=== PATIENT | male | born 1940 | race Caucasian/White ===

== ENCOUNTER 2021-02-26 20:46 | Inpatient (IN) | payer MEDICARE ==
[~2021-02-26 20:46] MED LIST: Heparin 1,000 UNITS/ML VIAL ONE
[2021-02-26 21:11] VITALS: BMI 26.4
[2021-02-26] MEDS ORDERED: traMADol HCl 50 MG TAB PO PRN (21:22)
[2021-02-26] MEDS ORDERED: Acetaminophen 325 MG TAB PO PRN (21:22)
[2021-02-26] MEDS ORDERED: Gabapentin 300 MG CAP PO SCH (21:45)
[2021-02-26] MEDS ORDERED: Docusate 100 MG CAP PO PRN (23:21)
[2021-02-26] MEDS: Docusate 100 MG CAP PO PRN (23:27)
[2021-02-26] MEDS: oxyCODONE/Acetaminophen 5 mg/325 mg Tablet PO PRN (23:50)
[2021-02-26] MEDS ORDERED: Albuterol 200 PUFF (6.7GM INHALER) INH PRN (23:51)
[2021-02-26] MEDS ORDERED: Vancomycin 1 GM in Premix Bag 1 BAG IVPB SCH (23:59)
[2021-02-27] MEDS: Ipratropium Bromide 2.5 ml Neb NEB SCH ×4 (01:46→19:38)
[2021-02-27 04:20] LABS: #Eosinphils 0.1 thou/uL (0.0-0.7); #Lymphocytes 1.9 thou/uL (1.20-3.40); #Monocytes 0.4 thou/uL (0.11-0.59); #Neutrophils 2.7 thou/uL (1.40-6.50); %Basophils 0.3 % (0.0-1.0); %Eosinophils 2.3 % (0.0-10.0); %Lymphocytes 36.3 % (21.0-51.0); %Monocytes 8.2 % (0.0-10.0); %Neutrophils 52.9 % (42.0-75.0); Hemoglobin 12.1 g/dL (14.0-18.0); Mean Corpuscular Hemoglobin 29.8 pg (27.0-31.0); Mean Corpuscular Volume 90.2 fL (78.0-98.0); Mean Platelet Volume 8.2 fL (7.4-10.4); Platelet Count 215 thou/uL (130-400); RBC Distribution Width 13.2 % (11.5-14.5); Red Blood Cell (RBC) Count 4.08 mill/uL (4.70-6.10); White Blood Cell (WBC) Count 5.2 thou/uL (4.8-10.8)
[2021-02-27 04:42] LABS: Anion Gap 10 mmol/L (10-20); BUN (Urea Nitrogen) 11 mg/dL (8.4-25.7); Calc. Creatinine Clearance 80 mL/min (70-130); Calcium 8.8 mg/dL (7.8-10.44); Carbon Dioxide 26 mmol/L (23-31); Chloride 105 mmol/L (98-107); Glucose 100 mg/dL (83-110); Potassium 3.7 mmol/L (3.5-5.1); Sodium 137 mmol/L (136-145)
[2021-02-27] MEDS ORDERED: Vancomycin HCl 750 MG in Sodium Chloride 0.9% 250 ML 250 ML IVPB SCH (06:00)
[2021-02-27] MEDS: oxyCODONE/Acetaminophen 5 mg/325 mg Tablet PO PRN ×3 (06:53→21:58)
[2021-02-27] MEDS ORDERED: hydrALAZINE 20 MG/ML VIAL SLOW IVP PRN (07:28)
[2021-02-27] MEDS ORDERED: Vancomycin 1 GM in Premix Bag 1 BAG IVPB SCH ×2 (09:00→12:00)
[2021-02-27] MEDS ORDERED: Triamterene/Hydrochlorothiazide 37.5 mg/25 mg Tablet PO SCH (09:00)
[2021-02-27] MEDS ORDERED: Lorazepam 2 MG/ML VIAL SLOW IVP PRN (09:08)
[2021-02-27] MEDS: Polyethylene Glycol 3350 17 GM Packet PO SCH (09:21)
[2021-02-27] MEDS: Amlodipine 5 MG TAB PO SCH ×2 (09:21→20:05)
[2021-02-27] MEDS: Vit A,C & E/Lutein/Minerals Tablet PO SCH (09:21)
[2021-02-27] MEDS: Simvastatin 10 MG TAB PO SCH ×2 (09:21→09:29)
[2021-02-27] MEDS: Lisinopril 20 MG TAB PO SCH ×2 (09:25→20:05)
[2021-02-27] MEDS: Tamsulosin HCl 0.4 MG CAP PO SCH (09:25)
[2021-02-27] MEDS: Gabapentin 300 MG CAP PO SCH ×3 (09:25→20:05)
[2021-02-27] MEDS ORDERED: Ketorolac Tromethamine 30 MG/ML VIAL IVP SCH (11:00)
[2021-02-27] MEDS ORDERED: Piperacillin/Tazobactam 3.375 GM in Sodium Chloride 0.9% 100 ML IVPB SCH ×3 (12:15→17:00)
[2021-02-27] MEDS: Ketorolac Tromethamine 30 MG/ML VIAL IVP PRN (17:42)
[2021-02-27] MEDS: guaiFENesin/DM ER PO SCH (20:05)
[2021-02-28] MEDS: Ipratropium Bromide 2.5 ml Neb NEB SCH ×5 (01:20→23:27)
[2021-02-28] MEDS: Ketorolac Tromethamine 30 MG/ML VIAL IVP PRN (02:47)
[2021-02-28] MEDS: tiZANidine HCl 4 MG TAB PO PRN (02:47)
[2021-02-28] MEDS: oxyCODONE/Acetaminophen 5 mg/325 mg Tablet PO PRN ×2 (07:25→14:38)
[2021-02-28] MEDS: Simvastatin 10 MG TAB PO SCH (09:28)
[2021-02-28] MEDS: Lisinopril 20 MG TAB PO SCH ×2 (09:28→20:05)
[2021-02-28] MEDS: Docusate 100 MG CAP PO PRN (09:28)
[2021-02-28] MEDS ORDERED: Bisacodyl 10 MG SUPP PR PRN ×2 (09:29→14:08)
[2021-02-28] MEDS: Tamsulosin HCl 0.4 MG CAP PO SCH (09:29)
[2021-02-28] MEDS: Amlodipine 5 MG TAB PO SCH ×2 (09:29→20:07)
[2021-02-28] MEDS: Polyethylene Glycol 3350 17 GM Packet PO SCH (09:30)
[2021-02-28] MEDS: Vit A,C & E/Lutein/Minerals Tablet PO SCH (09:30)
[2021-02-28] MEDS ORDERED: Fleet Enema 133 ML BOT PR SCH (09:30)
[2021-02-28] MEDS: Gabapentin 300 MG CAP PO SCH ×3 (09:32→20:06)
[2021-02-28] MEDS: guaiFENesin/DM ER PO SCH ×2 (09:32→20:06)
[2021-02-28] MEDS: busPIRone HCl 5 MG TAB PO PRN (12:14)
[2021-02-28] MEDS: Melatonin 3 MG TAB PO PRN (20:07)
[2021-02-28] MEDS: Calcium Carbonate 500 MG ChewTAB PO PRN (21:35)
[2021-03-01] MEDS: oxyCODONE/Acetaminophen 5 mg/325 mg Tablet PO PRN ×3 (01:18→16:41)
[2021-03-01] MEDS: tiZANidine HCl 4 MG TAB PO PRN ×2 (05:32→20:28)
[2021-03-01] MEDS: Vit A,C & E/Lutein/Minerals Tablet PO SCH (09:00)
[2021-03-01 09:21] LABS: #Basophils 0.1 thou/uL (0.0-0.2); #Eosinphils 0.2 thou/uL (0.0-0.7); #Lymphocytes 2.6 thou/uL (1.20-3.40); #Monocytes 0.5 thou/uL (0.11-0.59); #Neutrophils 4.7 thou/uL (1.40-6.50); %Basophils 0.8 % (0.0-1.0); %Eosinophils 2.6 % (0.0-10.0); %Lymphocytes 31.7 % (21.0-51.0); %Monocytes 6.6 % (0.0-10.0); %Neutrophils 58.2 % (42.0-75.0); Hemoglobin 12.9 g/dL (14.0-18.0); Mean Corpuscular HGB CONC 32.4 g/dL (32.0-36.0); Mean Corpuscular Hemoglobin 29.5 pg (27.0-31.0); Mean Corpuscular Volume 91.2 fL (78.0-98.0); Platelet Count 218 thou/uL (130-400); RBC Distribution Width 13.6 % (11.5-14.5); Red Blood Cell (RBC) Count 4.37 mill/uL (4.70-6.10); White Blood Cell (WBC) Count 8.1 thou/uL (4.8-10.8)
[2021-03-01 09:42] LABS: ALT (SGPT) 13 U/L (8-55); AST (SGOT) 18 U/L (5-34); Albumin 3.7 g/dL (3.4-4.8); Alkaline Phosphatase 67 U/L (40-110); Anion Gap 14 mmol/L (10-20); BUN (Urea Nitrogen) 19 mg/dL (8.4-25.7); Bilirubin, Total 0.6 mg/dL (0.2-1.2); Calc. Creatinine Clearance 61 mL/min (70-130); Calcium 9.5 mg/dL (7.8-10.44); Carbon Dioxide 25 mmol/L (23-31); Chloride 102 mmol/L (98-107); Glucose 108 mg/dL (83-110); Potassium 4.2 mmol/L (3.5-5.1); Protein, Total 6.7 g/dL (5.8-8.1); Sodium 137 mmol/L (136-145)
[2021-03-01] MEDS: Senokot S 8.6-50 MG TAB PO SCH ×2 (10:01→21:49)
[2021-03-01] MEDS: Simvastatin 10 MG TAB PO SCH (10:01)
[2021-03-01] MEDS: Gabapentin 300 MG CAP PO SCH ×3 (10:01→20:28)
[2021-03-01] MEDS: Lisinopril 20 MG TAB PO SCH ×2 (10:03→11:09)
[2021-03-01] MEDS: Tamsulosin HCl 0.4 MG CAP PO SCH ×2 (10:05→20:28)
[2021-03-01] MEDS: Amlodipine 5 MG TAB PO SCH (10:05)
[2021-03-01] MEDS: guaiFENesin/DM ER PO SCH ×2 (10:06→20:28)
[2021-03-01] MEDS: Polyethylene Glycol 3350 17 GM Packet PO SCH (10:06)
[2021-03-01] MEDS: busPIRone HCl 5 MG TAB PO PRN (10:51)
[2021-03-01] MEDS: Ipratropium Bromide 2.5 ml Neb NEB SCH ×2 (11:07→13:50)
[2021-03-01] MEDS ORDERED: Ipratropium Bromide 2.5 ml Neb NEB PRN (13:14)
[2021-03-01] MEDS: Phenazopyridine HCl 100 MG TAB PO SCH (18:07)
[2021-03-01] MEDS: Phenazopyridine HCl 97.5 MG TABLET PO SCH (20:18)
[2021-03-01] MEDS: Melatonin 3 MG TAB PO PRN (20:28)
[2021-03-01] MEDS: Ampicillin 2 GM in Sodium Chloride 0.9% 100 ML IVPB SCH (20:29)
[2021-03-01] MEDS: cefTRIAXone\\ROCEPHIN 2 GM in Sodium Chloride 0.9% 100 ML IVPB SCH (20:29)
[2021-03-02] MEDS: Ampicillin 2 GM in Sodium Chloride 0.9% 100 ML IVPB SCH ×6 (01:13→21:39)
[2021-03-02] MEDS: oxyCODONE/Acetaminophen 5 mg/325 mg Tablet PO PRN ×2 (02:40→14:10)
[2021-03-02 04:32] LABS: #Eosinphils 0.1 thou/uL (0.0-0.7); #Monocytes 0.5 thou/uL (0.11-0.59); #Neutrophils 4.5 thou/uL (1.40-6.50); %Basophils 0.3 % (0.0-1.0); %Eosinophils 1.7 % (0.0-10.0); %Lymphocytes 27.6 % (21.0-51.0); %Monocytes 7.3 % (0.0-10.0); %Neutrophils 63.1 % (42.0-75.0); Hemoglobin 11.7 g/dL (14.0-18.0); Mean Corpuscular HGB CONC 33.3 g/dL (32.0-36.0); Mean Corpuscular Hemoglobin 29.5 pg (27.0-31.0); Mean Corpuscular Volume 88.8 fL (78.0-98.0); Mean Platelet Volume 8.4 fL (7.4-10.4); Platelet Count 196 thou/uL (130-400); RBC Distribution Width 13.2 % (11.5-14.5); Red Blood Cell (RBC) Count 3.97 mill/uL (4.70-6.10); White Blood Cell (WBC) Count 7.1 thou/uL (4.8-10.8)
[2021-03-02 04:50] LABS: Anion Gap 10 mmol/L (10-20); BUN (Urea Nitrogen) 16 mg/dL (8.4-25.7); Calc. Creatinine Clearance 79 mL/min (70-130); Calcium 9.1 mg/dL (7.8-10.44); Carbon Dioxide 26 mmol/L (23-31); Chloride 105 mmol/L (98-107); Glucose 112 mg/dL (83-110); Potassium 3.6 mmol/L (3.5-5.1); Sodium 137 mmol/L (136-145)
[2021-03-02] MEDS: Ketorolac Tromethamine 30 MG/ML VIAL IVP PRN (05:11)
[2021-03-02] MEDS: Calcium Carbonate 500 MG ChewTAB PO PRN ×2 (08:39→12:35)
[2021-03-02] MEDS: Gabapentin 300 MG CAP PO SCH ×3 (08:40→21:40)
[2021-03-02] MEDS: Senokot S 8.6-50 MG TAB PO SCH ×2 (08:41→21:39)
[2021-03-02] MEDS: Phenazopyridine HCl 100 MG TAB PO SCH ×3 (08:41→18:55)
[2021-03-02] MEDS: busPIRone HCl 5 MG TAB PO PRN (08:41)
[2021-03-02] MEDS: Tamsulosin HCl 0.4 MG CAP PO SCH ×2 (08:42→21:39)
[2021-03-02] MEDS: cefTRIAXone\\ROCEPHIN 2 GM in Sodium Chloride 0.9% 100 ML IVPB SCH ×2 (08:42→18:55)
[2021-03-02] MEDS: guaiFENesin/DM ER PO SCH ×2 (08:43→21:39)
[2021-03-02] MEDS: Vit A,C & E/Lutein/Minerals Tablet PO SCH (08:44)
[2021-03-02] MEDS: Polyethylene Glycol 3350 17 GM Packet PO SCH (08:45)
[2021-03-02] MEDS: Simvastatin 10 MG TAB PO SCH (08:45)
[2021-03-02] MEDS: Phenazopyridine HCl 97.5 MG TABLET PO SCH ×3 (11:06→18:43)
[2021-03-02] MEDS ORDERED: Milk Of Magnesia 30 ML UDCUP PO PRN (13:06)
[2021-03-02] MEDS: tiZANidine HCl 4 MG TAB PO PRN (14:11)
[2021-03-02] MEDS: Melatonin 3 MG TAB PO PRN (21:39)
[2021-03-03] MEDS: Ampicillin 2 GM in Sodium Chloride 0.9% 100 ML IVPB SCH ×4 (01:53→12:02)
[2021-03-03] MEDS: oxyCODONE/Acetaminophen 5 mg/325 mg Tablet PO PRN ×2 (06:21→12:28)
[2021-03-03] MEDS: cefTRIAXone\\ROCEPHIN 2 GM in Sodium Chloride 0.9% 100 ML IVPB SCH (08:03)
[2021-03-03] MEDS: Polyethylene Glycol 3350 17 GM Packet PO SCH (08:04)
[2021-03-03] MEDS: Gabapentin 300 MG CAP PO SCH (08:05)
[2021-03-03] MEDS: Senokot S 8.6-50 MG TAB PO SCH (08:05)
[2021-03-03] MEDS: Simvastatin 10 MG TAB PO SCH (08:06)
[2021-03-03] MEDS: busPIRone HCl 5 MG TAB PO PRN (08:06)
[2021-03-03] MEDS: guaiFENesin/DM ER PO SCH (08:06)
[2021-03-03] MEDS: Phenazopyridine HCl 100 MG TAB PO SCH (08:06)
[2021-03-03] MEDS: Tamsulosin HCl 0.4 MG CAP PO SCH (08:06)
[2021-03-03 08:16] VITALS: BP 136/67; TEMP 98.7
[2021-03-03] MEDS: Phenazopyridine HCl 97.5 MG TABLET PO SCH (09:02)
[2021-03-03] MEDS: Vit A,C & E/Lutein/Minerals Tablet PO SCH (09:27)
== END 2021-03-03 13:30 | disposition home or self-care (01) | DRG 540 ==
LOC: ONC 21:04 → OBSVTOIN 02-27 17:19
PROVIDERS: ADMIT Family Medicine; ATTEND Internal Medicine
PROC: 02HV33Z Insertion of Infusion Device into Superior Vena Cava, Percutaneous Approach (ICD-10-PCS; principal; 2021-03-02)
PROC: B5181ZA Fluoroscopy of Superior Vena Cava using Low Osmolar Contrast, Guidance (ICD-10-PCS; 2021-03-02)
PROC: B548ZZA Ultrasonography of Superior Vena Cava, Guidance (ICD-10-PCS; 2021-03-02)
DX: M46.24 Osteomyelitis of vertebra, thoracic region (principal); I50.32 Chronic diastolic (congestive) heart failure; I42.9 Cardiomyopathy, unspecified; M46.44 Discitis, unspecified, thoracic region; I11.0 Hypertensive heart disease with heart failure; J44.9 Chronic obstructive pulmonary disease, unspecified; I73.9 Peripheral vascular disease, unspecified; G89.29 Other chronic pain; N40.0 Benign prostatic hyperplasia without lower urinary tract symptoms; E78.2 Mixed hyperlipidemia; G47.00 Insomnia, unspecified; K59.00 Constipation, unspecified; K21.9 Gastro-esophageal reflux disease without esophagitis; Z95.0 Presence of cardiac pacemaker; Z88.5 Allergy status to narcotic agent; Z91.041 Radiographic dye allergy status
CPT/HCPCS: 36415; 36569; 80048; 80053; 84145; 85025; 85652; 86140; 87040; 93306; 94640; 96374; 96375; G0378; J0290; J0360; J0696; J1644; J1885; J2543; J3370; J3490

== ENCOUNTER 2021-03-06 19:58 | Inpatient (IN) | payer MEDICARE ==
[2021-03-07] MEDS ORDERED: cefTRIAXone\\ROCEPHIN 2 GM VIAL ONE (01:00)
[2021-03-07 01:06] LABS: #Eosinphils 0.1 thou/uL (0.0-0.7); #Monocytes 0.4 thou/uL (0.11-0.59); %Basophils 0.4 % (0.0-1.0); %Eosinophils 2.7 % (0.0-10.0); %Lymphocytes 35.9 % (21.0-51.0); %Monocytes 7.9 % (0.0-10.0); %Neutrophils 53.1 % (42.0-75.0); Hemoglobin 11.9 g/dL (14.0-18.0); Mean Corpuscular HGB CONC 33.5 g/dL (32.0-36.0); Mean Corpuscular Volume 89.7 fL (78.0-98.0); Mean Platelet Volume 8.4 fL (7.4-10.4); Platelet Count 155 thou/uL (130-400); RBC Distribution Width 13.5 % (11.5-14.5); Red Blood Cell (RBC) Count 3.98 mill/uL (4.70-6.10); White Blood Cell (WBC) Count 5.6 thou/uL (4.8-10.8)
[2021-03-07 01:22] LABS: ALT (SGPT) 21 U/L (8-55); AST (SGOT) 19 U/L (5-34); Albumin 3.6 g/dL (3.4-4.8); Alkaline Phosphatase 68 U/L (40-110); Anion Gap 12 mmol/L (10-20); BUN (Urea Nitrogen) 14 mg/dL (8.4-25.7); Bilirubin, Total 0.5 mg/dL (0.2-1.2); Calc. Creatinine Clearance 0 mL/min (70-130); Calcium 9.2 mg/dL (7.8-10.44); Carbon Dioxide 25 mmol/L (23-31); Chloride 104 mmol/L (98-107); Globulin 2.7 g/dL (2.4-3.5); Glucose 131 mg/dL (83-110); Potassium 3.5 mmol/L (3.5-5.1); Protein, Total 6.3 g/dL (5.8-8.1); Sodium 137 mmol/L (136-145)
[2021-03-07] MEDS ORDERED: Ampicillin 2 GM in Sodium Chloride 0.9% 100 ML IVPB SCH ×2 (01:30→09:00)
[2021-03-07] MEDS ORDERED: HYDROcodone/Acetaminophen 7.5/325 mg Tablet ONE (02:34)
[2021-03-07] MEDS ORDERED: Morphine 2 MG/ML VIAL ONE (05:37)
[2021-03-07] MEDS ORDERED: Ondansetron PF 4 MG/2 ML Vial ONE (05:37)
[2021-03-07] MEDS ORDERED: HYDROcodone/Acetaminophen 7.5/325 mg Tablet PO PRN (07:21)
[2021-03-07] MEDS ORDERED: cefTRIAXone\\ROCEPHIN 2 GM in Sodium Chloride 0.9% 100 ML IVPB SCH (07:30)
[2021-03-07] MEDS ORDERED: Ondansetron PF 4 MG/2 ML Vial IVP PRN (07:30)
[2021-03-07] MEDS ORDERED: Acetaminophen 325 MG TAB PO PRN (07:30)
[2021-03-07] MEDS ORDERED: Ondansetron ODT 4 MG TAB SL PRN (07:30)
[2021-03-07] MEDS ORDERED: oxyCODONE 5 MG TAB PO PRN (07:31)
[2021-03-07] MEDS ORDERED: Albuterol Sulfate 1.25 MG/3 ML NEB NEB PRN (07:53)
[2021-03-07 07:58] VITALS: BMI 25.1
[2021-03-07] MEDS ORDERED: cefTRIAXone\\ROCEPHIN 2 GM VIAL IVPB SCH (08:00)
[2021-03-07] MEDS: Sodium Chloride 0.9% 1,000 ML IV SCH ×2 (08:39→23:41)
[2021-03-07] MEDS: Ampicillin 2 GM in Sodium Chloride 0.9% 100 ML IVPB SCH ×4 (08:40→20:29)
[2021-03-07] MEDS: busPIRone HCl 5 MG TAB PO PRN (08:41)
[2021-03-07] MEDS: Gabapentin 300 MG CAP PO SCH ×3 (08:42→21:48)
[2021-03-07] MEDS: Tamsulosin HCl 0.4 MG CAP PO SCH (08:42)
[2021-03-07] MEDS: Polyethylene Glycol 3350 17 GM Packet PO SCH (08:44)
[2021-03-07] MEDS ORDERED: Ampicillin 2 GM VIAL IVPB SCH (09:00)
[2021-03-07] MEDS: Vit A,C & E/Lutein/Minerals Tablet PO SCH (10:05)
[2021-03-07] MEDS: Ipratropium Bromide 2.5 ml Neb NEB SCH ×2 (13:00→19:31)
[2021-03-07] MEDS: cefTRIAXone\\ROCEPHIN 2 GM in Sodium Chloride 0.9% 100 ML IVPB SCH (13:12)
[2021-03-07 16:20] LABS: SARS-CoV-2 NAA Rapid Test Not Detected (NotDetected)
[2021-03-07] MEDS: HYDROcodone/Acetaminophen 5/325 mg Tablet PO PRN (19:48)
[2021-03-07] MEDS: Atorvastatin Calcium 10 MG TAB PO SCH (21:48)
[2021-03-07] MEDS: Melatonin 3 MG TAB PO PRN (23:39)
[2021-03-08] MEDS: Ampicillin 2 GM in Sodium Chloride 0.9% 100 ML IVPB SCH ×6 (00:03→20:25)
[2021-03-08] MEDS: Morphine 2 MG/ML VIAL SLOW IVP PRN ×3 (00:11→09:36)
[2021-03-08] MEDS: cefTRIAXone\\ROCEPHIN 2 GM in Sodium Chloride 0.9% 100 ML IVPB SCH ×2 (01:03→12:21)
[2021-03-08] MEDS: Ipratropium Bromide 2.5 ml Neb NEB SCH ×4 (01:58→19:38)
[2021-03-08 06:29] LABS: #Eosinphils 0.1 thou/uL (0.0-0.7); #Lymphocytes 1.9 thou/uL (1.20-3.40); #Monocytes 0.4 thou/uL (0.11-0.59); #Neutrophils 2.5 thou/uL (1.40-6.50); %Basophils 0.3 % (0.0-1.0); %Eosinophils 2.7 % (0.0-10.0); %Monocytes 7.4 % (0.0-10.0); %Neutrophils 50.6 % (42.0-75.0); Hemoglobin 11.9 g/dL (14.0-18.0); Mean Corpuscular HGB CONC 32.9 g/dL (32.0-36.0); Mean Corpuscular Hemoglobin 29.6 pg (27.0-31.0); Mean Corpuscular Volume 90.1 fL (78.0-98.0); Mean Platelet Volume 8.5 fL (7.4-10.4); Platelet Count 160 thou/uL (130-400); RBC Distribution Width 13.7 % (11.5-14.5); Red Blood Cell (RBC) Count 4.01 mill/uL (4.70-6.10)
[2021-03-08] MEDS: HYDROcodone/Acetaminophen 5/325 mg Tablet PO PRN ×4 (06:42→20:25)
[2021-03-08 06:48] LABS: Anion Gap 10 mmol/L (10-20); BUN (Urea Nitrogen) 8 mg/dL (8.4-25.7); Calc. Creatinine Clearance 80 mL/min (70-130); Carbon Dioxide 27 mmol/L (23-31); Chloride 105 mmol/L (98-107); Glucose 110 mg/dL (83-110); Potassium 3.7 mmol/L (3.5-5.1); Sodium 138 mmol/L (136-145)
[2021-03-08] MEDS: Gabapentin 300 MG CAP PO SCH ×3 (09:42→20:24)
[2021-03-08] MEDS: Vit A,C & E/Lutein/Minerals Tablet PO SCH (09:42)
[2021-03-08] MEDS: Tamsulosin HCl 0.4 MG CAP PO SCH (09:43)
[2021-03-08] MEDS: Polyethylene Glycol 3350 17 GM Packet PO SCH (09:43)
[2021-03-08] MEDS ORDERED: Calcium Carbonate 500 MG ChewTAB PO PRN (14:15)
[2021-03-08] MEDS: Sodium Chloride 0.9% 1,000 ML IV SCH ×2 (18:11→20:25)
[2021-03-08] MEDS ORDERED: hydrALAZINE 20 MG/ML VIAL SLOW IVP PRN (19:24)
[2021-03-08] MEDS: Atorvastatin Calcium 10 MG TAB PO SCH (20:25)
[2021-03-08] MEDS: Melatonin 3 MG TAB PO PRN (20:25)
[2021-03-08] MEDS: busPIRone HCl 5 MG TAB PO PRN (21:06)
[2021-03-08] MEDS ORDERED: Nitroglycerin 2% Ointment 1 INCH/1 GM Packet ONE ×2 (21:26→21:44)
[2021-03-08] MEDS ORDERED: Nitroglycerin 2% Ointment 1 INCH/1 GM Packet TOP ONE (21:30)
[2021-03-08 21:36] LABS: #Eosinphils 0.1 thou/uL (0.0-0.7); #Lymphocytes 2.8 thou/uL (1.20-3.40); #Monocytes 0.3 thou/uL (0.11-0.59); #Neutrophils 2.6 thou/uL (1.40-6.50); %Basophils 0.6 % (0.0-1.0); %Eosinophils 2.2 % (0.0-10.0); %Lymphocytes 47.7 % (21.0-51.0); %Monocytes 5.6 % (0.0-10.0); Mean Corpuscular HGB CONC 33.7 g/dL (32.0-36.0); Mean Corpuscular Hemoglobin 30.4 pg (27.0-31.0); Mean Corpuscular Volume 90.3 fL (78.0-98.0); Mean Platelet Volume 8.8 fL (7.4-10.4); Platelet Count 170 thou/uL (130-400); RBC Distribution Width 13.7 % (11.5-14.5); Red Blood Cell (RBC) Count 4.29 mill/uL (4.70-6.10)
[2021-03-08] MEDS ORDERED: Morphine 2 MG/ML VIAL SLOW IVP SCH (21:40)
[2021-03-08] MEDS ORDERED: Cyclobenzaprine 10 MG TAB PO SCH (21:45)
[2021-03-08 21:54] LABS: Lactic Acid 1.9 mmol/L (0.5-2.2)
[2021-03-08 21:58] LABS: ALT (SGPT) 18 U/L (8-55); AST (SGOT) 19 U/L (5-34); Albumin 3.8 g/dL (3.4-4.8); Alkaline Phosphatase 68 U/L (40-110); Anion Gap 14 mmol/L (10-20); BUN (Urea Nitrogen) 8 mg/dL (8.4-25.7); Bilirubin, Total 0.4 mg/dL (0.2-1.2); Calc. Creatinine Clearance 75 mL/min (70-130); Calcium 8.9 mg/dL (7.8-10.44); Carbon Dioxide 22 mmol/L (23-31); Chloride 105 mmol/L (98-107); Globulin 2.5 g/dL (2.4-3.5); Glucose 114 mg/dL (83-110); Potassium 4.1 mmol/L (3.5-5.1); Protein, Total 6.3 g/dL (5.8-8.1); Sodium 137 mmol/L (136-145)
[2021-03-08 22:03] LABS: Troponin I 0.016 ng/mL (< 0.028)
[2021-03-08] MEDS ORDERED: HYDROmorphone 0.5 MG/0.5 ML SYRINGE SLOW IVP SCH (22:15)
[2021-03-09] MEDS: Ipratropium Bromide 2.5 ml Neb NEB SCH ×3 (00:15→13:35)
[2021-03-09] MEDS: Ampicillin 2 GM in Sodium Chloride 0.9% 100 ML IVPB SCH ×4 (01:21→13:59)
[2021-03-09 01:27] LABS: Troponin I Less than 0.010 ng/mL (< 0.028)
[2021-03-09] MEDS: cefTRIAXone\\ROCEPHIN 2 GM in Sodium Chloride 0.9% 100 ML IVPB SCH ×2 (01:28→13:59)
[2021-03-09] MEDS: HYDROcodone/Acetaminophen 5/325 mg Tablet PO PRN ×2 (04:10→11:49)
[2021-03-09 04:56] LABS: Troponin I 0.017 ng/mL (< 0.028)
[2021-03-09] MEDS: Morphine 2 MG/ML VIAL SLOW IVP PRN ×2 (06:09→14:00)
[2021-03-09] MEDS ORDERED: Cyclobenzaprine 10 MG TAB PO SCH (06:30)
[2021-03-09] MEDS ORDERED: Cyclobenzaprine 10 MG TAB PO PRN (07:25)
[2021-03-09] MEDS ORDERED: Losartan 25 MG TAB PO SCH (09:00)
[2021-03-09] MEDS ORDERED: Hydrochlorothiazide 25 MG TAB PO SCH (09:00)
[2021-03-09] MEDS ORDERED: Metoprolol Tartrate 25 MG TAB PO SCH (09:00)
[2021-03-09] MEDS: Gabapentin 300 MG CAP PO SCH ×2 (10:15→16:39)
[2021-03-09] MEDS: Polyethylene Glycol 3350 17 GM Packet PO SCH (10:16)
[2021-03-09] MEDS: Tamsulosin HCl 0.4 MG CAP PO SCH (10:16)
[2021-03-09] MEDS: Vit A,C & E/Lutein/Minerals Tablet PO SCH (10:16)
[2021-03-09] MEDS: Sodium Chloride 0.9% 1,000 ML IV SCH (13:59)
[2021-03-09 15:08] VITALS: BP 140/90; TEMP 98.4
== END 2021-03-09 16:40 | DRG 552 ==
LOC: ERS 19:58 → ONC 03-07 03:17 → 2NO 03-08 22:06
PROVIDERS: ADMIT Student in an Organized Health Care Education/Training Program; ATTEND Internal Medicine
DX: M46.44 Discitis, unspecified, thoracic region (principal); M46.24 Osteomyelitis of vertebra, thoracic region; I50.32 Chronic diastolic (congestive) heart failure; J44.9 Chronic obstructive pulmonary disease, unspecified; I11.0 Hypertensive heart disease with heart failure; G47.33 Obstructive sleep apnea (adult) (pediatric); K21.9 Gastro-esophageal reflux disease without esophagitis; I73.9 Peripheral vascular disease, unspecified; F41.9 Anxiety disorder, unspecified; I25.5 Ischemic cardiomyopathy; E78.5 Hyperlipidemia, unspecified; Z20.822 Contact with and (suspected) exposure to COVID-19; N40.0 Benign prostatic hyperplasia without lower urinary tract symptoms; Z95.0 Presence of cardiac pacemaker; Z88.5 Allergy status to narcotic agent; Z87.891 Personal history of nicotine dependence; Z88.8 Allergy status to other drugs, medicaments and biological substances
CPT/HCPCS: 36415; 71045; 80048; 80053; 83605; 84484; 85025; 85652; 86140; 93005; 93010; 94640; 96365; 96367; 96375; J0290; J0696; J1170; J2270; J2405; J3490; J7050; U0002; U0005

== ENCOUNTER 2021-07-22 07:31 | Outpatient (CLI) | payer MEDICARE | END 2021-07-22 07:32 | disposition home or self-care (01) | LOC: CT 07:31 | PROVIDERS: ATTEND Internal Medicine Infectious Disease | DX: M46.24 Osteomyelitis of vertebra, thoracic region (principal); M46.54 Other infective spondylopathies, thoracic region; M46.44 Discitis, unspecified, thoracic region; I38 Endocarditis, valve unspecified | CPT/HCPCS: 36415; 72128; 80048; 80076; 85025; 86140 ==